=== PATIENT | female | born 1995 | race African-American/Black ===

== ENCOUNTER 2018-02-04 19:48 | Emergency (ER) | payer MEDICAID ==
[2018-02-04 19:55] VITALS: BP 109/70
--- NOTE | 2018-02-04 20:50 | EDPHY ---
H & P Time Seen by Provider: 02/04/18 20:09 HPI/ROS: HPI Urinary complaints. 22-year-old female by private vehicle. This patient complains of burning and increased frequency with urination since yesterday. She is currently menstruating. She has not had a fever. Denies any back pain. No other complaints. ROS: Constitutional: No fever, no chills. No weakness. Respiratory: No cough. No shortness of breath. Cardiac: No chest pain, no palpitations. Gastrointestinal: No abdominal pain, no vomiting, no diarrhea. Genitourinary: No hematuria. As above. Musculoskeletal: No back pain. No neck pain. No myalgias or arthralgias. Skin: No rashes. Neurological: No headache. No focal weakness or altered sensation. Past medical history: Eczema. Social history: She is a student [employer]. Nonsmoker. No alcohol. Physical Exam: General Appearance: Alert, no distress. This patient is responding to questions appropriately and in full sentences. This patient appears well- hydrated and well-nourished. Eyes: Pupils equal and round no pallor or injection. No lid edema, erythema or injection. Gastrointestinal: Abdomen is soft and nontender, no masses, bowel sounds normal. No focal tenderness at McBurney's point. No Kang sign. Neurological: Motor sensory function is grossly intact. Cranial nerves are normal. Gait is normal. Skin: Warm and dry, no rashes. Musculoskeletal: No CVA tenderness bilaterally. Extremities are symmetrical. All joints range without pain or impingement. Psychiatric: No agitation. No depression. Database: EKG: Imaging: Procedures: Emergency department course: Vital signs reviewed and are normal. Patient's urinalysis indicates infection. We will start her on Keflex in the emergency department. She will also be given a dose of Pyridium. I will prescribe these medications as treatment. She feels comfortable going home and I feel she is safe for discharge. Follow- up and return to emergency department precautions reviewed with her. All of her questions were answered. The patient was discharged home in good condition. Differential Diagnosis: The differential diagnosis on this patient includes but is not limited to urinary tract infection. Pyelonephritis unlikely. This represents a partial list of diagnoses considered. These considerations are based on history, physical exam, past history, reassessment and diagnostic testing. Smoking Status: Never smoked Constitutional: Initial Vital Signs Temperature (C) 36.7 C 02/04/18 19:52 Heart Rate 88 02/04/18 19:52 Respiratory Rate 16 02/04/18 19:52 Blood Pressure 109/70 02/04/18 19:52 O2 Sat (%) 60 L 02/04/18 19:52 O2 Delivery Mode Room Air Allergies/Adverse Reactions: No Known Allergies Allergy (Unverified 02/04/18 19:55) Home Medications: Medication Instructions Recorded Cephalexin [Keflex (*)] 500 mg PO Q6 5 Days cap 02/04/18 Phenazopyridine HCl [Pyridium] 200 mg PO TID #10 tab 02/04/18 Medical Decision Making - Data Points Laboratory Results: 02/04/18 19:56 Urine Color YELLOW Urine Appearance TURBID Urine pH 5.0 (5.0-7.5) Ur Specific Cecil 1.021 (1.002-1.030) Urine Protein 2+ H (NEGATIVE) Urine Ketones NEGATIVE (NEGATIVE) Urine Blood 3+ H (NEGATIVE) Urine Nitrate NEGATIVE (NEGATIVE) Urine Bilirubin NEGATIVE (NEGATIVE) Urine Urobilinogen NEGATIVE EU EU (0.2-1.0) Ur Leukocyte Esterase 2+ H (NEGATIVE) Urine RBC 50-182 /hpf H /hpf (0-3) Urine WBC 50-182 /hpf H /hpf (0-3) Ur Epithelial Cells NONE SEEN /lpf /lpf (NONE-1+) Urine Glucose NEGATIVE (NEGATIVE) Departure - Departure Disposition: Home, Routine, Self-Care Clinical Impression: Urinary tract infection Condition: Good Instructions: Urinary Tract Infection in Women (ED) Additional Instructions: Read and follow provided instructions. Follow-up with your primary care physician in 1-2 days for re-evaluation at the [facility].. Take medication as prescribed through entire course of treatment. Return to the emergency department for worsening symptoms, back pain, fever, vomiting or other serious concerns. Prescriptions: Cephalexin [Keflex (*)] 500 mg PO Q6 5 Days cap Phenazopyridine HCl [Pyridium] 200 mg PO TID #10 tab
[2018-02-04] MEDS ORDERED: CEPHALEXIN 500 MG CAP PO ONE (20:51)
[2018-02-04] MEDS ORDERED: PHENAZOPYRIDINE HCL 200 MG TAB PO ONE (20:51)
[2018-02-04] MEDS ORDERED: CEPHALEXIN 500MG PREPACK#4 BTL TAKEHOME ONE (20:53)
== END 2018-02-04 21:17 | disposition home or self-care (01) ==
DX: N39.0 Urinary tract infection, site not specified (principal)

== ENCOUNTER 2018-02-22 16:22 | Emergency (ER) | payer MEDICAID ==
--- NOTE | 2018-02-22 16:58 | EDPHY ---
H & P Stated Complaint: irritation/swelling in vaginal area, dysuria, finished keflex & monistat Time Seen by Provider: 02/22/18 16:29 HPI/ROS: CHIEF COMPLAINT: Groin pain HISTORY OF PRESENT ILLNESS: 22-year-old female presents with groin pain. Onset of a sore lesion in the vaginal area 4 days ago. Gradually increasing pain and swelling in the groin. Pain is moderate. Associated with dysuria. No abdominal pain or vaginal discharge. Tried Monistat without relief. No prior similar symptoms. One sexual partner. REVIEW OF SYSTEMS: complete 10 point ROS reviewed and is negative except for the noted elements in the HPI - Personal History LMP (Females 10-55): 22-28 Days Ago - Medical/Surgical History Hx Asthma: No Hx Chronic Respiratory Disease: No Hx Diabetes: No Hx Cardiac Disease: No Hx Renal Disease: No Hx Cirrhosis: No Hx Alcoholism: No Hx HIV/AIDS: No Hx Splenectomy or Spleen Trauma: No Other PMH: denies - Social History Smoking Status: Never smoked - Physical Exam Exam: General Appearance: Alert, pleasant Eyes: Pupils equal and round, no conjunctival pallor ENT, Mouth: Mucous membranes moist Neck: Normal inspection Respiratory: Lungs are clear to auscultation Cardiovascular: Regular rate and rhythm Gastrointestinal: Abdomen is soft and nontender Genitourinary: Multiple 2-4mm ulcerations on the external genitalia Neurological: A&O, nonfocal, normal gait Skin: Warm and dry Extremities: Normal inspection Psychiatric: Mood and affect normal Constitutional: Initial Vital Signs Temperature (C) 36.8 C 02/22/18 16:24 Heart Rate 99 02/22/18 16:24 Respiratory Rate 16 02/22/18 16:24 Blood Pressure 122/87 H 02/22/18 16:24 O2 Sat (%) 100 02/22/18 16:24 O2 Delivery Mode Room Air Allergies/Adverse Reactions: No Known Allergies Allergy (Verified 02/22/18 16:23) Home Medications: Medication Instructions Recorded Valacyclovir HCl [Valtrex] 1,000 mg PO BID #20 tablet 02/22/18 Medical Decision Making ED Course/Re-evaluation: This pt presents with genital herpes. Unable to tolerate speculum exam. Herpes cx sent. Rx: Valtrex f/u paste up artist Differential Diagnosis: Differential diagnosis includes though it is not limited to PID, batholin's cyst , ectopic , ovarian cyst, ovarian torsion, PID, UTI, appendicitis. Departure - Departure Disposition: Home, Routine, Self-Care Clinical Impression: Genital herpes Qualifiers: Herpes simplex infection site: vulvovaginitis Qualified Code(s): A60.04 - Herpesviral vulvovaginitis Condition: Good Instructions: Genital Herpes Simplex (ED) Additional Instructions: Ibuprofen 600 mg 3 times daily while the pain persists. Tylenol 650 mg every 4 hr as needed for pain. Referrals: Derick Gibbons MD [Medical Doctor] - As per Instructions (Call to make an appointment.) Prescriptions: Valacyclovir HCl [Valtrex] 1,000 mg PO BID #20 tablet
[2018-02-22 17:21] VITALS: BP 120/75
== END 2018-02-22 17:21 | disposition home or self-care (01) ==
DX: A60.04 Herpesviral vulvovaginitis (principal)
CPT/HCPCS: 87529-90

== ENCOUNTER 2018-07-09 09:11 | Emergency (ER) | payer MEDICAID ==
[2018-07-09] MEDS ORDERED: DEXAMETHASONE 10 MG/ML VIAL IVP ONE (09:34)
[2018-07-09] MEDS ORDERED: NS 1,000 ML IV ONE (09:35)
[2018-07-09] MEDS ORDERED: BENZOCAINE UNIT DOSE SPRAY HURRICAINE MM ONE (09:35)
[2018-07-09] MEDS ORDERED: fentaNYL 100 MCG/2 ML INJ IVP ONE (09:37)
--- NOTE | 2018-07-09 09:42 | EDPHY ---
General - History Smoking Status: Never smoked Time Seen by Provider: 07/09/18 09:21 Narrative: CLINICAL IMPRESSION: Right peritonsillar edema, tonsillitis ASSESSMENT/PLAN: 22-year-old female with a history of recurrent strep tonsillitis presents to the emergency department with 3 days of throat pain associated with increased right greater than left throat swelling over the last 24 hr. Patient is tolerating secretions well, vital signs stable, afebrile, no tachycardia or signs of respiratory distress. On exam she has significant right peritonsillar inflammation and swelling suggestive of peritonsillar abscess. However, for attempts at I and D of this area did not result in purulent aspirate. Patient was given IV Decadron, clindamycin, analgesics, and IV fluids. Unfortunately our ultrasound department is not trained to look for peritonsillar abscesses by ultrasound and I do not clinically feel this patient requires emergent CT imaging. Discussed with Dr. Naidu. I also spoke with Briana Dumont from [facility] who is happy to see the patient tomorrow for follow-up. Low threshold for return to emergency department sooner as outlined in person and discharge papers. Patient is comfortable with this plan. DIFFERENTIAL DX: Differential includes but not limited to strep tonsillitis, peritonsillar abscess, peritonsillar phlegmon, retropharyngeal abscess ED PROCEDURES: See lab and/or imaging results below Procedure: Abscess drainage. The patient's presumed abscess was located on the right peritonsillar region. All risks, indications and alternatives to treatment today were discussed with the patient and I obtained verbal consent from the patient to drain the abscess. Patient was informed about the possibility of bleeding and pain, recurrence, and risk for worsening infection. The area was anesthetized with Hurricaine spray and 0.5% bupivacaine with epinephrine.The abscess was punctured with a 20 gauge needle times for and no purulent drainage was expressed. The patient tolerated the procedure well. The procedure was performed by myself. ] ED COURSE: 9:35 p.m.: Patient seen and assessed by myself. Vital signs reviewed. Tolerating secretions well. Clinically patient appears to have a peritonsillar abscess. Risks, benefits and indications for I and D of this were discussed and patient gives verbal consent. IV established, IV fluids, Decadron, pain medication, and antibiotics ordered. 10:30 p.m.: I and D of right peritonsillar space did not result in purulent aspirate. I attempted four separate sites. Ultrasound does not perform procedure to look for peritonsillar abscess. I do not feel this patient clinically requires a CT head or neck. I will discuss with ENT for follow-up in 24 hr. CHIEF COMPLAINT: Tonsillitis, throat swelling HPI: Very pleasant 22-year-old female presents to the emergency department with complaints of worsening sore throat for the last 4 days. She has been able to tolerate water but has had trouble eating. She reports increased swelling primarily to the right tonsil. She does report strep throat 3 times last year but has never had a prior peritonsillar abscess. She has not consulted with [facility]. She reports no neck swelling or difficulty moving the neck. She reports subjective fever and chills. No nausea or vomiting. No recent dental work. No tongue swelling or difficulty breathing. 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 PHYSICAL EXAM: General Appearance: Alert, oriented, appropriate, cooperative, NAD, well hydrated, non-toxic appearing, muffled sound in voice, tolerating secretions VSS , no hypoxia. HEENT: TMs are clear bilaterally no perforation or FB, no injection, no evidence of serous or mucopurulent otitis. Oropharynx is erythematous bilaterally, no exudates appreciated, significant right tonsillar hypertrophy with probable peritonsillar abscess. Mild fluctuance appreciated to palpation of the soft palate. Uvular edema noted. Dentition without abnormality. Eyes: PERRLA, no acute vision change, nystagmus, swelling, discharge, pain or photosensitivity. Conjunctiva pink, no pallor or injection Neck: Supple, nontender, no lymphadenopathy, no midline pain, FROM, no meningismus. No sign of neck abscess Respiratory: There are no retractions, lungs are clear to auscultation. Cardiac: Regular rate and rhythm, no murmurs or gallops. Skin: Warm, dry, no rashes, no nodules on palpation. MEDICAL DECISION MAKING: Patient was seen independently. Secondary supervising physician at time of evaluation was: Dr. Naidu. Diagnosis: Right peritonsillar edema, tonsillitis. New, requires workup Summary: See Assessment and Plan for summary of ED visit Clinical lab tests: ordered / reviewed. Decision to obtain medical records or history from someone other than the patient: No Review / Summarize previous medical records: None available Discussed patient with another provider: Briana Foster Patient Progress: Improved, stable for discharge. (Omid Che) Medical Decision Making: I did not see this patient while she was in the emergency department. However her care was discussed with the PA while the patient was in the department. I agree with treatment plan and management (Godfrey Naidu) - Objective Vital Signs: Initial Vital Signs Temperature (C) 37.1 C 07/09/18 09:14 Heart Rate 92 07/09/18 09:14 Respiratory Rate 16 07/09/18 09:14 Blood Pressure 116/80 07/09/18 09:14 O2 Sat (%) 96 07/09/18 09:14 O2 Delivery Mode Room Air Allergies/Adverse Reactions: No Known Allergies Allergy (Verified 07/09/18 09:13) Home Medications: Medication Instructions Recorded Valacyclovir HCl [Valtrex] 1,000 mg PO BID #20 tablet 02/22/18 Amoxicillin Trihydrate 500 mg PO Q8 #21 cap 07/09/18 [Amoxicillin 500mg capsule] Dexamethasone [Decadron 4 MG (*)] 8 mg PO DAILY #4 tab 07/09/18 Hydrocodone/APAP 5/325 [[place] 1 - 2 tab PO Q4H PRN #10 tab 07/09/18 5/325 (*)] Laboratory Results: 07/09/18 09:16 Group A Strep Screen POSITIVE H (NEGATIVE) Medications Given: Discontinued Medications Benzocaine (Hurricaine [place]) 1 each MM EDNOW ONE Stop: 07/09/18 09:36 Last Admin: 07/09/18 09:47 Dose: 1 each Dexamethasone (Decadron Injection) 14 mg IVP EDNOW ONE Stop: 07/09/18 09:35 Last Admin: 07/09/18 09:47 Dose: 14 mg Fentanyl (Sublimaze) 50 mcg IVP EDNOW ONE Stop: 07/09/18 09:38 Last Admin: 07/09/18 09:47 Dose: 50 mcg Sodium Chloride (Ns) 1,000 mls @ 0 mls/hr IV EDNOW ONE; Wide Open PRN Reason: Protocol Stop: 07/09/18 09:36 Last Admin: 07/09/18 09:47 Dose: 1,000 mls Clindamycin Phosphate/Dextrose (Cleocin 600 Mg (Premix)) 50 mls @ 100 mls/hr IV EDNOW ONE PRN Reason: Protocol Stop: 07/09/18 10:57 Last Admin: 07/09/18 10:46 Dose: 50 mls Departure - Departure Disposition: Home, Routine, Self-Care Clinical Impression: Tonsillitis Condition: Good Instructions: Tonsillitis (ED) Additional Instructions: DISCHARGE INSTRUCTIONS FROM YOUR DOCTOR Thank you for visiting our emergency department today. You were treated by a physician miner assistant today and your case was reviewed with our ED Attending physician. Please keep in mind that discharge from the emergency department does not mean that there is nothing wrong - it simply means that we have not identified an emergency condition that requires further evaluation or treatment in the hospital. You should always plan to follow up with primary care for re- evaluation of your condition in the next 2-3 days. If you have been referred to a specialist, please call as soon as possible (today or tomorrow) to schedule your follow up appointment at the appropriate time. [ YOU HAVE STREP TONSILLITIS. CLINICALLY IT APPEARED YOU HAD A PERITONSILLAR ABSCESS HOWEVER WE DID NOT HAVE LUCK ASPIRATING ANY PURULENT DISCHARGE FROM AROUND THE TONSIL. YOU RECEIVED IV STEROIDS AND IV ANTIBIOTICS IN THE ER. PLEASE FOLLOW-UP WITH [facility] TOMORROW. TAKE ORAL ANTIBIOTICS INDICATED. A STEROID TAPER WAS PRESCRIBED. PLEASE RETURN TO THE EMERGENCY DEPARTMENT IMMEDIATELY FOR INCREASED IN THROAT SWELLING, INABILITY TO TOLERATE SECRETIONS, TROUBLE BREATHING, SWELLING INTO THE NECK, SEVERE PAIN, HIGH FEVERS , OR ANY OTHER CONCERN.] People present with illnesses and injuries in different ways, and it is always possible that we have missed something. You may always return for re-evaluation if symptoms worsen or if they are not improving or if you develop new/different symptoms. Again, thank you for choosing our emergency department. We hope that you feel better. Referrals: NONE *PRIMARY CARE P,. [Primary Care Provider] - As per Instructions Briana Dumont PA [Physician Rounding Machine Operator] - 1 day without fail Stand Alone Forms: School Excuse, Work Excuse Prescriptions: Amoxicillin Trihydrate [Amoxicillin 500mg capsule] 500 mg PO Q8 #21 cap Dexamethasone [Decadron 4 MG (*)] 8 mg PO DAILY #4 tab Hydrocodone/APAP 5/325 [[place] 5/325 (*)] 1 - 2 tab PO Q4H PRN #10 tab PRN Reason: Pain, Moderate
[2018-07-09] MEDS ORDERED: CLINDAMYCIN 600 MG/DEXTROSE 50 ML IV ONE (10:28)
[2018-07-09 11:29] VITALS: BP 127/87
== END 2018-07-09 11:28 | disposition home or self-care (01) ==
DX: J03.90 Acute tonsillitis, unspecified (principal); E86.9 Volume depletion, unspecified
CPT/HCPCS: 96374; J1100; J3010